=== PATIENT | female | born 1975 | race Caucasian/White ===

== ENCOUNTER 2017-12-28 12:10 | Day surgery (SDC) | payer BC ==
--- NOTE | 2017-12-28 05:51 | History and Physical Report ---
DATE: 12/27/2017. CHIEF COMPLAINT AND HISTORY OF CHIEF COMPLAINT: This patient presents with a history of an intractable lumbar radiculopathy. Due to the failure of all therapies and the lack of surgical options, she presents today for implantation of an internal catheter infusion trial with hydromorphone to determine if the implantation of a permanent system can be of any value in pain control. PAST MEDICAL HISTORY: Hypertension, cardiac arrhythmia, peripheral edema, asthmatic bronchitis, degenerative arthritis, fibromyalgia, depression, difficulty sleeping. PAST SURGICAL HISTORY: Tubal ligation, gallbladder surgery. MEDICATIONS ON ADMISSION: To be provided. ALLERGIES: To be provided. SOCIAL HISTORY: Caffeine, smoking. FAMILY HISTORY: Thyroid disease, asthma, diabetes, hypertension. PHYSICAL EXAMINATION: General: Height and weight unavailable. Vital Signs: Not available. HEENT: Within normal limits. Lungs: Clear. Heart: Regular rate and rhythm. Abdomen: Nontender. Musculoskeletal: Examination of the musculoskeletal system shows diffuse tenderness throughout the lumbar spine. Range of motion does produce pain throughout the low back and hip area. There is a lower extremity component across an L4 and L5 pattern. Motor and sensory field function shows sensory beltran to be intact and motor function to be intact. Ambulation: No assistive device utilized. Neurologic: Cranial nerves are intact. IMPRESSION: INTRACTABLE LUMBAR RADICULOPATHY, ICD-10 CODE M54.16 AND M54.17. PLAN: The patient is here for an implanted spinal catheter infusion trial with hydromorphone to determine if the implantation of a permanent system would be of any value in pain control. The procedure will be considered outpatient, but because of the epidural blood patch requiring the patient to lie flat for four hours and then be slowly raised for one hour, she will be considered a possible overnight candidate. All of the potential risks, side effects, and complications have been reviewed. A book was provided along with a CD Rom from the holistic specialist explaining the procedure and side effects. She also had interaction with a [employer] marketing representative. All of her questions were answered and the patient has consented. JOB NUMBER: [id number] cc: Dorinda Mcgraw
[~2017-12-28 12:10] MED LIST: ACETAMINOPHEN 1,000 MG/100 ML BTL IV ONE; CEFAZOLIN 2 Gram 2 GM/50 ML BAG IVPB ONE; FAMOTIDINE 20MG TABLET PO ONE; HYDROMORPHONE PF 2MG/ML AMP 0.008 MG in 0.9 % SODIUM CHLORIDE 10ML VIA 0.996 ML IV ONE; HYDROMORPHONE PF 2MG/ML AMP 4 MG in 0.9 % SODIUM CHLORIDE 500ML 498 ML IV ONE; HYDROMORPHONE PF 2MG/ML AMP 8 MG in 0.9 % SODIUM CHLORIDE 500ML 496 ML IV ONE; MECLIZINE 25 MG TABLET PO ONE; METOCLOPRAMIDE 10 MG TABLET PO ONE
[2017-12-28] MEDS ORDERED: CEFAZOLIN 1G VIAL IM ONE (12:11)
[2017-12-28] MEDS ORDERED: MIDAZOLAM HCL 2MG/2ML VIAL IV ONE (12:11)
[2017-12-28] MEDS ORDERED: LIDOCAINE 1% MDV (10MG/ML) 20ML VIAL SQ ONE (12:11)
[2017-12-28] MEDS ORDERED: BUPIVACAINE 0.5% W/EPI MPF 30 ML VIAL IVP ONE (12:11)
[2017-12-28] MEDS ORDERED: FENTANYL PF 100MCG/2ML VIAL IV ONE (12:11)
[2017-12-28] MEDS ORDERED: LIDOCAINE 1% W/EPI 1:200,000 MPF 30ML SQ ONE (12:11)
[2017-12-28] MEDS ORDERED: HYDROMORPHONE HCL 2 MG/ML VIAL IV ONE (12:11)
[2017-12-28] MEDS ORDERED: *PACU ONLY* KETAMINE HCL 10 MG/ML (20ML) VIAL IV ONE (12:11)
[2017-12-28] MEDS ORDERED: PROPOFOL 10 MG/ML VIAL IV ONE (12:11)
[2017-12-28] MEDS ORDERED: HYDROCODONE/APAP 7.5/325MG TABLET PO PRN ×2 (16:20)
[2017-12-28] MEDS ORDERED: DIPHENHYDRAMINE HCL 50 MG/ML VIAL IVP PRN ×2 (16:20)
[2017-12-28] MEDS ORDERED: OXYCODONE/APAP 10MG-325MG TABLET PO PRN (16:20)
[2017-12-28] MEDS ORDERED: NALOXONE 0.4 MG/1 ML VIAL IVP PRN (16:20)
[2017-12-28] MEDS ORDERED: RINGERS SOLUTION,LACTATED 1,000 ML IV SCH (16:20)
[2017-12-28] MEDS ORDERED: HYDROMORPHONE HCL 2 MG/ML VIAL IM PRN ×2 (16:20)
[2017-12-28] MEDS ORDERED: DIPHENHYDRAMINE HCL 25 MG CAPSULE PO PRN ×2 (16:20)
[2017-12-28] MEDS ORDERED: ACETAMINOPHEN 325 MG TAB PO PRN ×2 (16:20)
[2017-12-28] MEDS ORDERED: TEMAZEPAM 15 MG CAPSULE PO PRN ×2 (16:20)
[2017-12-28] MEDS ORDERED: METOCLOPRAMIDE 10 MG TABLET PO PRN (16:20)
[2017-12-28] MEDS ORDERED: AL HYDROX/MAG HYDROX 30ML UD PO PRN (16:20)
[2017-12-28] MEDS ORDERED: METOCLOPRAMIDE HCL 10 MG/2 ML VIAL IVP PRN (16:20)
[2017-12-28] MEDS ORDERED: SENNOSIDES/DOCUSATE SODIUM UD CAPSULE PO PRN ×2 (16:20)
[2017-12-28] MEDS ORDERED: ALPRAZOLAM 0.25 MG TABLET PO PRN (16:21)
[2017-12-28] MEDS ORDERED: ALBUTEROL HFA 8 GM INHALER INH PRN (16:23)
[2017-12-28] MEDS: OXYCODONE/APAP 10MG-325MG TABLET PO PRN ×2 (18:12→20:40)
--- NOTE | 2017-12-28 18:56 | Operative Note ---
DATE OF SURGERY: 12/28/17. PREOPERATIVE DIAGNOSES: LUMBAR RADICULOPATHY ICD-10 CODE M54.16 AND M54.17. SURGERY: 1. FLUOROSCOPIC-GUIDED ACCESS SPINAL SPACE AT L3-4, PLACEMENT OF THIN-WALLED SPINAL CATHETER INTO THE SPINAL SPACE AT T12. 2. DIAGNOSTIC MYELOGRAPHY WITH RADIOLOGIC SUPERVISION AND INTERPRETATION. 3. BOLUS OF HYDROMORPHONE INTO THE SPINAL SPACE AT 0.004 MG . 4. INCISION, SUBCUTANEOUS DISSECTION AND ANCHORING OF SPINAL CATHETER TO SUPRASPINOUS FASCIA WITH ANCHORING DEVICE AND NONABSORBABLE SUTURE. 5. INCISION, SUBCUTANEOUS DISSECTION AND CREATION OF SMALL POUCH AT THE LEFT FLANK. 6. TUNNELING MIDLINE SPINAL CATHETER TO FLANK POUCH. INTERFACE SPINAL CATHETER WITH SECOND CATHETER COMPONENT BY WAY OF CONNECTOR. TUNNELING SECOND CATHETER COMPONENTS 4.0 CM SUPERIOR EXITING SKIN. 7. EXTERNAL CATHETER INTERFACED TO EXTERNAL PUMP SET TO DELIVER HYDROMORPHONE AT 0.08 MG PER DAY. 8. EPIDURAL BLOOD PATCH AT L4-5, 20 ML AUTOLOGOUS BLOOD DRAWN WITH STERILE TECHNIQUE LEFT ANTECUBITAL. 9. DRESSINGS PLACED SECURING CATHETER AND ALL CONNECTIONS UNDER STERILE DRESSING. SURGEON: Dane Kohler D.O. ANESTHESIA: Local sedation. ANESTHESIA PROVIDER: Kaitlyn Vázquez CRNA. INDICATIONS: This patient presents with a history of intractable lumbar radiculopathy. Due to the failure of therapy, she is here for an implanted spinal catheter infusion trial with hydromorphone to determine if the implantation of a permanent system can be of any value in pain control. PROCEDURE: Intravenous line, vital sign monitoring, and intravenous sedation. Prepped and draped with sterile technique with the patient positioned prone. The spinal interspace at L3-4 was marked and infiltrated under imaging. A 20- gauge spinal needle with a paramedian approach, beveled with a long axis was inserted into the spinal space using AP and lateral images for guidance. With cerebrospinal fluid flow, a thin-walled spinal catheter was advanced and positioned at T12. Diagnostic myelography was performed. The resulting flow characteristics were appropriate for the space. With these flow characteristics in site and the level confirmed, a bolus of hydromorphone 0.004 mg was given into the spinal space. The skin above and below the needle was infiltrated, an incision was made, and subcutaneous dissection was conducted to the supraspinous fascia. The needle was removed and the catheter was anchored to the supraspinous fascia with an anchoring device and nonabsorbable suture. Cerebrospinal fluid was still noted through the catheter, and the catheter was clamped. At the left flank, with the patient considering either above the belt or an abdominal pump, the skin was infiltrated. An incision was made, and subcutaneous dissection was conducted to form a small subcutaneous pouch. The spinal catheter was tunneled into this pouch, and then the catheter was interfaced with a second catheter component by way of a connector. The second catheter component was tunneled 4.0 cm superior exiting the skin. At that point , the catheter was extended to a pump and then interfaced to an external pump which was set to deliver Hydromorphone at 0.08 mg a day. Both incisions were closed with Vicryl for fascia and a running Nylon for the skin. At L4-5, which is one level below the dural puncture, the skin was infiltrated, and an 18-gauge Tuohy needle with [id number] with the epidural space accessed. Simultaneously, 20 mL of autologous blood was drawn with sterile technique from the left antecubital. This blood was placed onto the field and an epidural blood patch was performed at this level with this blood. The needle was removed. All of the dressings were reinforced, securing the catheter and all connections as well as the incisions under sterile dressing. She was transported to the recovery room flat with a pillow under her head and knees. She had full functionality of her extremities. No abnormal findings with respect to conversation or pain. She will be transferred to the floor and will be kept flat for four hours and then will be slowly elevated for one hour. She will then be evaluated for discharge or an overnight stay. DISCHARGE INSTRUCTIONS: 1. Sites are to remain clean and dry, no showering or bathing in any way that would disrupt dressings. If this happens, contact the clinic. 2. Standard medications are to be resumed including Levaquin, the antibiotic, 500 mg once a day for 14 days. 3. Spinal opioid side-effects including respiratory depression, nausea, vomiting, constipation, urinary retention, lightheadedness, and rash have all been discussed and reviewed. If she has any of these symptoms, she is to contact the clinic. 4. The office will contact the patient and set up three reprogrammings for increases with the first to be done in the next two to three days. 5. All other instructions provided. Numbers to contact if problems given. She will be evaluated. cc: Rosi Bourgeois M.D. JOB NUMBER: [id number] MTDD
[2017-12-28] MEDS ORDERED: TRAMADOL HCL 50 MG TABLET PO PRN ×2 (20:18→20:24)
[2017-12-28] MEDS ORDERED: LISINOPRIL 10 MG TABLET PO SCH (22:00)
[2017-12-28] MEDS ORDERED: METFORMIN 500 MG TABLET PO SCH (22:00)
[2017-12-28] MEDS ORDERED: HYDROCHLOROTHIAZIDE 25 MG TABLET PO SCH (22:00)
[2017-12-28] MEDS ORDERED: CEFAZOLIN 2 Gram 2 GM/50 ML BAG IVPB SCH (22:30)
[2017-12-29] MEDS ORDERED: ARNUITY (FLUTICASONE FUROATE) 100MCG INH INH SCH (10:00)
--- NOTE | 2017-12-31 15:06 | RADIOLOGY REPORT ---
DATE: 12/28/2017. EXAM: LUMBAR SPINE. HISTORY: Postoperative. TECHNIQUE: Portable lumbar spine. COMPARISON: None. FINDINGS: Stimulating wires are partially seen. Overlying stool and bowel gas. IMPRESSION: POSTSURGICAL CHANGE. JOB NUMBER: [id number] MTDD
== END 2017-12-28 21:40 | disposition home or self-care (01) ==
LOC: SUR 12:10 → MEDSURG 16:47 → SUR 21:40
PROVIDERS: ATTEND Pain Medicine Interventional Pain Medicine
DX: M54.16 Radiculopathy, lumbar region (principal); M54.17 Radiculopathy, lumbosacral region; I10 Essential (primary) hypertension; R00.2 Palpitations; I49.9 Cardiac arrhythmia, unspecified; E11.9 Type 2 diabetes mellitus without complications; Z79.84 Long term (current) use of oral hypoglycemic drugs; J45.909 Unspecified asthma, uncomplicated; M79.7 Fibromyalgia
CPT/HCPCS: 36416; 82948; 72020; 62350; 00630; Q9967; J3010; J1170 ×2; J0690; J7040

== ENCOUNTER 2018-01-11 13:55 | Day surgery (SDC) | payer BC ==
--- NOTE | 2018-01-11 07:56 | History and Physical Report ---
DATE: 01/11/2018. CHIEF COMPLAINT AND HISTORY OF CHIEF COMPLAINT: This patient presents with an implanted spinal catheter infusion trial with hydromorphone. She is here for permanent implantation. PAST MEDICAL HISTORY: No interval change. PAST SURGICAL HISTORY: No interval change. MEDICATIONS ON ADMISSION: To be provided. ALLERGIES: Unchanged. SOCIAL HISTORY: No interval change. FAMILY HISTORY: No interval change. REVIEW OF SYSTEMS: The patient is appropriate and in no acute distress. The remainder of the systems review shows no interval changes. PHYSICAL EXAMINATION: General: Height and weight unavailable. Vital Signs: Not available. HEENT: Within normal limits. Lungs: Clear. Heart: Regular rate and rhythm. Abdomen: Nontender. Musculoskeletal: Evaluation of the externalized catheter dressing is intact. There is no drainage or breakdown. The externalized infusion pump is continuing to function appropriately. Neurologic: Cranial nerves are intact. IMPRESSION: 1. INTRACTABLE LUMBAR RADICULOPATHY, ICD-10 CODE M54.16 AND M54.17. 2. IMPLANTED SPINAL CATHETER INFUSION TRIAL WITH HYDROMORPHONE. PLAN: The patient is here for implantation of a permanent system with removal of all of the external components. The potential risks, side effects, and complications have all been reviewed. JOB NUMBER: [id number] cc: Rosi Bourgeois M.D. MTDD
[~2018-01-11 13:55] MED LIST changes: +HYDROMORPHONE HCL 0.04 GM in 0.9 % SODIUM CHLORIDE 10ML VIA 40 ML IV ONE; +HYDROMORPHONE PF 2MG/ML AMP 0.004 MG in 0.9 % SODIUM CHLORIDE 10ML VIA 0.998 ML IV ONE; -HYDROMORPHONE PF 2MG/ML AMP 0.008 MG in 0.9 % SODIUM CHLORIDE 10ML VIA 0.996 ML IV ONE; -HYDROMORPHONE PF 2MG/ML AMP 4 MG in 0.9 % SODIUM CHLORIDE 500ML 498 ML IV ONE; -HYDROMORPHONE PF 2MG/ML AMP 8 MG in 0.9 % SODIUM CHLORIDE 500ML 496 ML IV ONE
[2018-01-11] MEDS ORDERED: MIDAZOLAM HCL 2MG/2ML VIAL IV ONE (13:56)
[2018-01-11] MEDS ORDERED: LIDOCAINE 1% MDV (10MG/ML) 20ML VIAL SQ ONE (13:56)
[2018-01-11] MEDS ORDERED: CEFAZOLIN 1G VIAL IM ONE (13:56)
[2018-01-11] MEDS ORDERED: FENTANYL PF 100MCG/2ML VIAL IV ONE (13:56)
[2018-01-11] MEDS ORDERED: BUPIVACAINE 0.5% W/EPI MPF 30 ML VIAL IVP ONE (13:56)
[2018-01-11] MEDS ORDERED: LIDOCAINE 1% W/EPI 1:200,000 MPF 30ML SQ ONE (13:56)
[2018-01-11] MEDS ORDERED: PROPOFOL 10 MG/ML VIAL IV ONE (13:56)
[2018-01-11] MEDS ORDERED: HYDROMORPHONE HCL 2 MG/ML VIAL IV ONE (13:56)
--- NOTE | 2018-01-11 21:29 | Operative Note - [place] ---
DATE OF SURGERY: 01/11/18. PREOPERATIVE DIAGNOSES: 1. INTRACTABLE LUMBAR RADICULOPATHY, ICD-10 CODE = M54.16 AND M54.17. 2. IMPLANTED SPINAL CATHETER INFUSION TRIAL HYDROMORPHONE. SURGERY: 1. INCISION, SUBCUTANEOUS DISSECTION AND REMOVAL OF INDWELLING SPINAL CATHETER. SURGEON: KARY DUBOIS D.O. ANESTHESIA: LOCAL SEDATION. ANESTHESIA PROVIDER: TOM TRAN CRNA. INDICATIONS: This patient presents with pain, which is low back and leg. An implanted spinal catheter infusion trial of Hydromorphone had resulted in 75+% pain control. As she arrived today into the Pre-Op Area for surgery to permanently implant the system, all the dressing was off and the externalized catheter was fully exposed at the penetration point exiting the skin. Despite the degree of pain control, it was felt that implanting the technique would involve implanting a potentially contaminated catheter. We decided to remove the system. We could reevaluate a permanent implant over the next 2 to 4 weeks. SURGERY: Intravenous line, vital sign monitoring, IV sedation, prepped and draped sterile technique. The midline incision for the implanted spinal catheter was marked, infiltrated. The anchor was identified, the suture removed , the anchor removed, and a purse-string placed around the penetration point. Spinal catheter was retracted, the tip identified and the purse-string suture tightened stopping CSF leak. Antibiotic irrigation and Bovie for hemostasis. At the left posterior gluteal margin interface site between the external and internal catheter, skin infiltrated, incision made and subcutaneous dissection was conducted to the connection between the internal and external catheters, the connector identified, cut, and removed. The external catheter was then removed, pulling away from the incision. Antibiotic irrigation and Bovie for hemostasis. The incisions were then closed with Vicryl for facia and william for skin. Dressings placed. She was transported to the Recovery Room stable. No side-effects from the procedure or the sedation. When awake and alert, she will be discharged to home. DISCHARGE INSTRUCTIONS: 1. Sites are to remain clean and dry, no showering or bathing in any way that would disrupt dressings. If it happens, contact the clinic. 2. Standard medications resumed. She will continue the antibiotic until completion, which is another 7 days. 3. Should she develop a headache, stay flat, plenty of fluids, contact the office. All other instructions provided. Numbers to contact if problems were given. She will be evaluated in the office in 10 to 14 days. cc: Dr. Rosi Bourgeois JOB NUMBER: [id number] MTDD
== END 2018-01-11 17:10 | disposition home or self-care (01) ==
LOC: SUR 13:55
PROVIDERS: ATTEND Pain Medicine Interventional Pain Medicine
DX: M54.16 Radiculopathy, lumbar region (principal); M54.17 Radiculopathy, lumbosacral region; E11.9 Type 2 diabetes mellitus without complications; E78.00 Pure hypercholesterolemia, unspecified; I10 Essential (primary) hypertension
CPT/HCPCS: J0690; J1170

== ENCOUNTER 2018-04-19 13:02 | Day surgery (SDC) | payer BC ==
--- NOTE | 2018-04-19 07:29 | History and Physical - [place] ---
CHIEF COMPLAINT/HISTORY OF CHIEF COMPLAINT: This patient presents with a history of intractable lumbar radiculopathy. The previous implanted spinal catheter infusion trial was successful, but because of loss of integrity of the dressing it was felt appropriate to remove the device. She is here for implantation of a permanent system due to the failure of all other therapies. PAST MEDICAL HISTORY: Hypertension, cardiac arrhythmia, peripheral edema, asthmatic bronchitis, degenerative arthritis, fibromyalgia, depression, difficulty sleeping, and leukocytosis. PAST SURGICAL HISTORY: Tubal ligation and gallbladder surgery. MEDICATIONS ON ADMISSION: List to be provided. ALLERGIES: None. FAMILY/PSYCHOSOCIAL HISTORY: Social history - Caffeine and smoking. Family history - Thyroid disease, asthma, diabetes, and hypertension. SYSTEMS REVIEW: The patient is appropriate in no acute distress. The remainder of the systems review is noncontributory. PHYSICAL EXAMINATION: Height is 5'5", weight is 200 pounds. HEENT: Within normal limits. LUNGS: Clear. HEART: Regular rate and rhythm. ABDOMEN: Nontender. MUSCULOSKELETAL: Examination of the musculoskeletal system shows diffuse tenderness lumbar spine. Range of motion produces pain throughout the low back and extending into both lower extremities. Motor and sensory field evaluation is intact. There is no sensory or motor loss. No assistive device used for ambulation. NEUROLOGIC: Cranial nerves are intact. IMPRESSION: LUMBAR RADICULOPATHY, ICD-10 CODE M54.16 AND M54.17. PLAN: The patient is here for implantation of a spinal opioid infusion device with Hydromorphone. The potential risks, side effects, and complications have all been carefully reviewed and discussed. Information was provided by the sociology research assistant. A clinical specialist has been made contact with and all questions were answered. The procedure will be considered outpatient, although an overnight stay will be evaluated. JOB NUMBER: [id number] [facility]
[~2018-04-19 13:02] MED LIST changes: -HYDROMORPHONE HCL 0.04 GM in 0.9 % SODIUM CHLORIDE 10ML VIA 40 ML IV ONE; +HYDROMORPHONE HCL 0.08 GM in 0.9 % SODIUM CHLORIDE 10ML VIA 40 ML IV ONE; -HYDROMORPHONE PF 2MG/ML AMP 0.004 MG in 0.9 % SODIUM CHLORIDE 10ML VIA 0.998 ML IV ONE; +HYDROMORPHONE PF 2MG/ML AMP 0.008 MG in 0.9 % SODIUM CHLORIDE 10ML VIA 0.996 ML IV ONE
[2018-04-19] MEDS ORDERED: LIDOCAINE 2% MDV (20MG/ML) 20ML VIAL IV ONE (13:03)
[2018-04-19] MEDS ORDERED: FENTANYL PF 100MCG/2ML VIAL IV ONE (13:03)
[2018-04-19] MEDS ORDERED: MIDAZOLAM HCL 2MG/2ML VIAL IV ONE (13:03)
[2018-04-19] MEDS ORDERED: HYDROMORPHONE HCL 2 MG/ML VIAL IV ONE (13:03)
[2018-04-19] MEDS ORDERED: CEFAZOLIN 1G VIAL IM ONE (13:03)
[2018-04-19] MEDS ORDERED: PROPOFOL 10 MG/ML VIAL IV ONE (13:03)
[2018-04-19] MEDS ORDERED: BUPIVACAINE 0.5% W/EPI MPF 30 ML VIAL IVP ONE (13:03)
[2018-04-19] MEDS ORDERED: 0.9 % SODIUM CHLORIDE 10 ML VIAL IVP ONE (13:03)
[2018-04-19] MEDS ORDERED: LIDOCAINE 1% W/EPI 1:200,000 MPF 30ML SQ ONE (13:03)
[2018-04-19] MEDS ORDERED: HYDROMORPHONE HCL 2 MG/ML VIAL IM PRN ×2 (16:40)
[2018-04-19] MEDS ORDERED: OXYCODONE/APAP 10MG-325MG TABLET PO PRN (16:40)
[2018-04-19] MEDS ORDERED: DIPHENHYDRAMINE HCL 50 MG/ML VIAL IVP PRN ×2 (16:40)
[2018-04-19] MEDS ORDERED: METOCLOPRAMIDE HCL 10 MG/2 ML VIAL IVP PRN (16:40)
[2018-04-19] MEDS ORDERED: TEMAZEPAM 15 MG CAPSULE PO PRN ×2 (16:40)
[2018-04-19] MEDS ORDERED: AL HYDROX/MAG HYDROX 30ML UD PO PRN (16:40)
[2018-04-19] MEDS ORDERED: DIPHENHYDRAMINE HCL 25 MG CAPSULE PO PRN ×2 (16:40)
[2018-04-19] MEDS ORDERED: ACETAMINOPHEN 325 MG TAB PO PRN ×2 (16:40)
[2018-04-19] MEDS ORDERED: HYDROCODONE/APAP 7.5/325MG TABLET PO PRN ×2 (16:40)
[2018-04-19] MEDS ORDERED: RINGERS SOLUTION,LACTATED 1,000 ML IV SCH (16:40)
[2018-04-19] MEDS ORDERED: SENNOSIDES/DOCUSATE SODIUM UD CAPSULE PO PRN ×2 (16:40)
[2018-04-19] MEDS ORDERED: METOCLOPRAMIDE 10 MG TABLET PO PRN (16:40)
[2018-04-19] MEDS ORDERED: ALBUTEROL HFA 8 GM INHALER INH PRN (16:43)
[2018-04-19] MEDS ORDERED: ALPRAZOLAM 0.25 MG TABLET PO PRN (16:43)
[2018-04-19] MEDS: OXYCODONE/APAP 10MG-325MG TABLET PO PRN ×2 (17:54→20:01)
[2018-04-19] MEDS ORDERED: LISINOPRIL 20 MG TABLET PO SCH (22:00)
[2018-04-19] MEDS ORDERED: HYDROCHLOROTHIAZIDE 25 MG TABLET PO SCH (22:00)
[2018-04-19] MEDS ORDERED: METFORMIN 500 MG TABLET PO SCH (22:00)
[2018-04-19] MEDS ORDERED: ATORVASTATIN 20 MG TABLET PO SCH (22:00)
[2018-04-19] MEDS ORDERED: CEFAZOLIN 2 Gram 2 GM/50 ML BAG IVPB SCH (22:30)
--- NOTE | 2018-04-21 10:09 | RADIOLOGY REPORT ---
EXAM: AP THORACOLUMBAR SPINE HISTORY: POST PAIN PUMP IMPLANT. TECHNIQUE: A single AP view of the spine was obtained extending from the upper thoracic region down to the lower lumbar region. Comparison: AP thoracolumbar spine 12/28/17. FINDINGS: There is a battery pack now seen overlying the left lower quadrant of the abdomen not seen previously. Faint wire like density extends from this to overlie the mid lumbar spine and ascends up to what is probably the T12 level where there is a tiny metallic dot presumably representing the superior extent of the pain pump catheter. Some blurring artifact on the film, but there again appears to be surgical clips in the right upper quadrant of the abdomen presumably from cholecystectomy. Relative elevation of the right hemidiaphragm again noted. IMPRESSION: THE TIP OF THE PAIN PUMP CATHETER APPEARS TO OVERLIE THE T12 VERTEBRAL BODY. JOB NUMBER: [id number] MTDD
--- NOTE | 2018-04-21 16:34 | Operative Note ---
DATE: 04/19/2018. PREOPERATIVE DIAGNOSES: INTRACTABLE LUMBAR RADICULOPATHY, ICD-10 CODE M54.16 AND M54.17. PROCEDURES: 1. Fluoroscopically guided spinal access at L3-4. Placement of a thin-walled spinal catheter at T11-12. 2. Diagnostic myelography with radiologic supervision and interpretation. 3. Incision, subcutaneous dissection, and anchoring of spinal catheter to the supraspinous fascia using anchor device and nonabsorbable suture. removal of external catheter. 4. Incision, subcutaneous dissection, and creation of subcutaneous pouch at the left flank for placement of pump identified as Medtronic 20 mL programmable pump. 5. Tunneling between pouches. Placement of the external portion of the spinal catheter into pump pouch. Spinal catheter interfaced with secondary catheter component by way of connector. 6. Interface secondary catheter component to 20 mL programmable pump prefilled with hydromorphone 1.0 mg per mL. 7. With pump catheter connection made, pump placed into left flank pouch and secured to posterior fascia with nonabsorbable suture. 8. Placement of curved 24-gauge Goetz needle into access port for the programmable pump aspirating and clearing catheter of opioid and cerebrospinal fluid mixture. 9. Diagnostic myelography with radiologic supervision and interpretation using access port confirming functionality. 10. Programming of pump to deliver by continuous infusion hydromorphone 0.10 mg a day. 11. Closure of incisions using Stratafix suture, #2-0 for the fascia and #3-0 for the skin. Dermabond closure. 12. Epidural blood patch at L4-5 with 20 mL of autologous blood with sterile technique, left antecubital. SURGEON: Dane Kohler D.O. ANESTHESIA: Local sedation. ANESTHESIA PROVIDER: Lenin Whiting CRNA. INDICATIONS: This patient presents with a history of intractable lumbar radiculopathy. Due to the failure of all therapy and the success of the previous trials, she presented today for implantation of a permanent system. DESCRIPTION OF PROCEDURE: Intravenous lines, vital sign monitoring, and intravenous. Prepped and draped with sterile technique. Under imaging the spinal interspace at L3-4 was marked and infiltrated. A 20-gauge spinal needle , using AP and lateral imaging, was placed into the spinal space. With cerebrospinal fluid, a thin-walled spinal catheter was advanced into position at T11-12. Diagnostic myelography was performed. The resulting flow characteristics were smooth and linear in the space. No obstruction or redirection and the catheter was straight and linear. Appropriate flow characteristics were noted. No pain on the part of the patient. The catheter was clamped. The skin above and below the needle was infiltrated. An incision was made, and subcutaneous dissection was conducted through the supraspinous fascia. The needle was removed and the catheter was anchored to the supraspinous fascia with an anchor and nonabsorbable suture. Cerebrospinal fluid flow was still noted through the catheter. At the left flank, a site picked by the patient for the pouch, the skin was infiltrated. An incision was made and subcutaneous dissection was conducted to form a pouch of suitable size and depth for the pump itself identified as a Medtronic 20 mL programmable pump. The catheter was then tunneled into the flank pouch, and the catheter was interfaced with a second catheter component by way of connector. A 20 mL programmable pump prefilled with hydromorphone at 1.0 mg per mL was placed onto the field and then interfaced with the revised catheter. Antibiotic irrigation and Bovie for hemostasis. The pump was placed into the pouch and secured to the posterior fascia with nonabsorbable suture at three points with pump eyelets. The incisions were both closed using Stratafix suture with #2-0 for the fascia and #3-0 for the skin. Dermabond closure. At L4-5, which was one level below the dural puncture, the skin was infiltrated. An 18-gauge Tuohy needle with loss of resistance was placed into the epidural space. Simultaneously 20 mL of autologous blood was drawn with sterile technique, left antecubital. The epidural blood patch was then performed with this blood at this level maintaining sterility. Dressings were placed. Dermabond was placed over the incisions. The patient was turned supine, flat, with a pillow under her head and knees. She was transported to the recovery room stable with no side effects. She had full functionality of the extremities. The patient will be monitored. She will be flat for four hours and will then be slowly elevated for one hour. If requested, she may then be discharged. Otherwise she will be discharged in the morning. DISCHARGE INSTRUCTIONS: 1. The sites are to remain clean and dry. No showering or bathing in any way that would disrupt dressings. If this happens, contact the clinic. 2. Standard medications to be resumed including continuing the Levaquin the antibiotic 500 mg once a day for 14 days. 3. The office is to contact the patient at home to set up the evaluation in seven to ten days to check the site. Until then her activities should stay low. 4. Spinal opioid side effects including respiratory depression, nausea, vomiting, constipation, urinary retention, lightheadedness, and rash have all been discussed and reviewed. 5. She will be seen back in the office. JOB NUMBER: [id number] cc: Rosi Bourgeois M.D. MTDPablo
== END 2018-04-19 22:10 | disposition home or self-care (01) ==
LOC: SUR 13:02 → MEDSURG 16:30 → SUR 22:10
PROVIDERS: ATTEND Pain Medicine Interventional Pain Medicine
DX: M54.16 Radiculopathy, lumbar region (principal); M54.17 Radiculopathy, lumbosacral region; E11.9 Type 2 diabetes mellitus without complications; I10 Essential (primary) hypertension; E78.00 Pure hypercholesterolemia, unspecified; J45.909 Unspecified asthma, uncomplicated; F17.210 Nicotine dependence, cigarettes, uncomplicated
CPT/HCPCS: 62362; 01936; 62350; 62367; 85002; 72020; Q9967; J3010; J1170 ×2; J0690

== ENCOUNTER 2018-08-22 22:06 | Emergency (ER) | payer BC ==
--- NOTE | 2018-08-22 22:39 | Emergency Department Record ---
History of Present Illness - General Chief complaint: Extremity Problem Stated complaint: RT FOOT SWELLING Time Seen by Provider: 08/22/18 22:30 Source: Patient Mode of Arrival: Ambulatory Limitations: No limitations - History of Present Illness Initial comments: 43 yo female presents to ED for evaluation of swelling to the right foot and pain to the right popliteal region for the past 2 weeks. Patient reports recent flight for vacation that she returned from 2 weeks ago when the symptoms began, patient denies history of DVT/PE. Patient does report history of NIDDM and HTN at her baseline. MD Complaint: Extremity swelling Onset/Timin -: Days(s) Location: Right History of Same: No Radiation: None Consistency: Constant Improves with: Elevation Worsens with: Nothing Associated Symptoms: Denies other symptoms - Related Data Home Medications Medication Instructions Recorded Confirmed Last Taken Albuterol Sulfate [Albuterol 2 puff INH RESP.Q4H 08/22/18 08/22/18 Unknown Sulfate Hfa] Alprazolam 0.25 mg PO Q8H PRN 08/22/18 08/22/18 08/22/18 Beclomethasone Dipropionate [Qvar 1 puff INH DAILY 08/22/18 08/22/18 Unknown Redihaler] Fenofibrate Nanocrystallized 145 mg PO DAILY 08/22/18 08/22/18 Unknown [Fenofibrate] Hydrochlorothiazide [Hctz] 50 mg PO DAILY 08/22/18 08/22/18 Unknown Hydrocodone/Acetaminophen 1 tab PO Q8H PRN 08/22/18 08/22/18 Unknown [Hydrocodone/Acetaminophen 10mg/325mg] Lisinopril 20 mg PO DAILY 08/22/18 08/22/18 Unknown Metformin HCl 1,000 mg PO DAILY 08/22/18 08/22/18 08/22/18 Allergies Allergy/AdvReac Type Severity Reaction Status Date / Time ciprofloxacin [From Cipro] AdvReac Severe tendon Verified 03/29/18 12:17 rupture levofloxacin [From Levaquin] AdvReac Severe tendon Verified 03/29/18 12:17 rupture Travel Screening - Travel/Exposure Within Last 30 Days Have you traveled within the last 30 days?: Yes Location Detail:: [place] - Travel/Exposure Within Last Year Have you traveled outside the [place] in the last year?: No - Travel Symptoms Symptom Screening: None Review of Systems Constitutional: Denies: Chills, Fever, Malaise, Night sweats Eyes: Denies: Eye discharge, Eye pain ENT: Denies: Congestion, Ear pain, Epistaxis Respiratory: Denies: Cough, Dyspnea Cardiovascular: Reports: Edema. Denies: Chest pain, Dyspnea on exertion Endocrine: Denies: Fatigue, Heat or cold intolerance Gastrointestinal: Denies: Abdominal pain, Nausea, Vomiting Genitourinary: Denies: Incontinence, Retention Musculoskeletal: Denies: Arthralgia, Back pain Skin: Denies: Bruising, Change in color Neurological: Denies: Abnormal gait, Confusion, Headache, Seizure Psychiatric: Denies: Anxiety Hematological/Lymphatic: Denies: Anemia, Blood Clots Past Medical History - SOCIAL HISTORY Smoking Status: Current every day smoker Alcohol Use: None Drug Use: None - RESPIRATORY Hx Respiratory Disorders: Yes Hx Asthma: Yes (good control) - CARDIOVASCULAR Hx Cardio Disorders: Yes Hx Hypertension: Yes (on meds good control) Hx Irregular Heartbeat: Yes (occass skipped beats) Hx Palpitations: Yes Comment:: due to back issues - NEURO Hx Neuro Disorders: Yes Hx Dizziness: Yes (once in a while) Hx Headaches: Yes (occassionally) 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) - GI Hx GI Disorders: Yes Hx Abdominal Pain: Yes Hx Nausea/Vomiting: Yes (with meds nausea from Percocet) Hx of Polyps: Yes - Hx Genitourinary Disorders: No Comment:: TL 1997.pt had ablation uterine 2009 periods very light - ENDOCRINE Hx Endocrine Disorders: Yes Hx Diabetes: Yes (dx'd 1 yr ago) 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 FBS 's - MUSCULOSKELETAL Hx Musculoskeletal Disorders: Yes Hx Arthritis: Yes Hx Back Injury: Yes (2 yrs ago) Hx Fibromyalgia: Yes - PSYCH Hx Psych Problems: Yes Hx Anxiety: Yes Hx Depression: Yes - HEMATOLOGY/ONCOLOGY Hx Hematology/Oncology Disorders: No Family Medical History Any Significant Family History?: Yes Hx Diabetes: Grandparents Hx HTN: Father, Mother, Brother/Sister Physical Exam - General General Appearance: Alert, Oriented x3, Cooperative, No acute distress Limitations: No limitations - Head Head exam: Atraumatic, Normocephalic, Normal inspection Head exam detail: negative: Abrasion, Contusion, Renteria's sign, General tenderness, Hematoma, Laceration - Eye Eye exam: Normal appearance. negative: Conjunctival injection, Periorbital swelling, Periorbital tenderness, Scleral icterus - ENT Ear exam: negative: Auricular hematoma, Auricular trauma Nasal Exam: negative: Active bleeding, Discharge, Dried blood, Foreign body Mouth exam: negative: Drooling, Laceration, Muffled voice, Tongue elevation - Neck Neck exam: Normal inspection. negative: Meningismus, Tenderness - Respiratory Respiratory exam: Normal lung sounds bilaterally. negative: Rales, Respiratory distress, Rhonchi, Stridor - Cardiovascular Cardiovascular Exam: Regular rate, Normal rhythm, Normal heart sounds Peripheral Pulses: 3+: Dorsalis Pedis (R) - GI/Abdominal GI/Abdominal exam: Soft. negative: Rebound, Rigid, Tenderness - Rectal Rectal exam: Deferred - exam: Deferred - Extremities Extremities exam: Tenderness (TTP to the popliteal region, trace edema right foot, strong DPP present.). negative: Calf tenderness, Pedal edema - Back Back exam: Denies: CVA tenderness (R), CVA tenderness (L) - Neurological Neurological exam: Alert, Normal gait, Oriented X3 - Psychiatric Psychiatric exam: Normal affect, Normal mood - Skin Skin exam: Normal color. negative: Abrasion Type of lesion: negative: abrasion Course Vital Signs 08/22/18 22:15 Temperature 98.2 F Pulse Rate [ 69 Pulse Ox Probe] Respiratory 20 Rate Blood Pressure 138/70 [Left Arm] Pulse Ox 97 - Reevaluation(s) Reevaluation #1: 08/22/18 23:13 Laboratory studies were reviewed, D-Dimer negative. Patient was updated on all results, recommended elevation for her foot swelling , NSAIDs for her pain symptoms. Patient has strong DPP with cap refill 2 seconds, no evidence for arterial deficiency of the lower extremity on examination. Patient appears stable for discharge at this time. Medical Decision Making - Lab Data Result diagrams: 08/22/18 22:41 08/22/18 22:41 Disposition Disposition: Discharge Clinical Impression: Pedal edema Disposition: Home, Self-Care Condition: (2) Stable Instructions: Edema (ED) Additional Instructions: Return to ED if your symptoms worsen or if you have any concerns. Follow-up with your family doctor in 3-5 days as directed. Forms: Patient Portal Access Time of Disposition: 23:15 Quality - Quality Measures Quality Measures: N/A - Blood Pressure Screening Does Patient Have Any of the Following: No Blood Pressure Classification: Pre-Hypertensive BP Reading Systolic Measurement: 138 Diastolic Measurement: 70 Screening for High Blood Pressure: < Pre-Hypertensive BP, F/U Documented > [ G8950] Pre-Hypertensive Follow-up Interventions: Referral to alternative/primary care provider.
[2018-08-22 22:48] LABS: HEMATOCRIT 40.1 % (35.0-47.0); HEMOGLOBIN 12.9 gm/dl (11.6-16.0); MEAN CELL VOLUME 82.3 fl (81-97); MEAN CORPUSCULAR HEMOGLOBIN 26.5 pg (27-33); MEAN CORPUSCULAR HGB CONC 32.2 g/dl (32-36); MEAN PLATELET VOLUME 9.3 fl (7.4-10.4); PLATELET COUNT 327 K/uL (130-400); RED BLOOD COUNT 4.87 M/uL (3.80-5.40); RED CELL DISTRIBUTION WIDTH 14.1 % (11.5-14.5); WHITE BLOOD COUNT W/O DIFF 6.7 K/uL (4.2-12.2)
[2018-08-22 23:00] LABS: BLOOD UREA NITROGEN 7 mg/dL (6-20)
[2018-08-22 23:01] LABS: CREATININE 0.6 mg/dL (0.5-0.9); EST GLOMERULAR FILTRATION RATE > 60 mL/min
[2018-08-22 23:03] LABS: GLUCOSE,RANDOM 91 mg/dL (74-109)
== END 2018-08-22 23:21 | disposition home or self-care (01) ==
LOC: ER 22:06
DX: R60.0 Localized edema (principal); I10 Essential (primary) hypertension; F17.210 Nicotine dependence, cigarettes, uncomplicated
CPT/HCPCS: 80048; 85027; 85379; 99283

== ENCOUNTER 2018-09-05 12:31 | Emergency (ER) | payer BC, MEDICARE, MEDICAID ==
[2018-09-05] MEDS ORDERED: ACETAMINOPHEN 325 MG TAB PO ONE (12:51)
--- NOTE | 2018-09-05 12:56 | Emergency Department Record ---
History of Present Illness - General Chief complaint: Flu Like Symptoms Stated complaint: BODY ACHE,HEADACHE,SORE THROAT Time Seen by Provider: 09/05/18 12:41 Source: Patient Mode of Arrival: Ambulatory Limitations: No limitations - History of Present Illness Initial comments: The patient states she is here due to not feeling well for 2 weeks. She states she was at [facility] 2 weeks ago after having a cardiac arrest and having chest pain. She states she received NTG and ASA and felt better but then took her IV out due to not being seen for 5 hours by a doctor. The patient also states she tested positive for Influenza on that visit. Since she has had intermittent fevers with GUERRA's and body aches with a cough. Per the patient she was also exposed to Strep. MD Complaint: Generalized weakness, Lack of energy Onset/Timin -: Week(s) Location: Generalized Improves with: None Worsens with: None Associated Symptoms: Fever/chills, Headaches, Nausea/vomiting - [place] Coma Scale Eye Response: (4) Open spontaneously Motor Response: (6) Obeys commands Verbal Response: (5) Oriented [place] Total: 15 - Related Data Previous Rx's Medication Instructions Recorded Amoxicillin 500 mg PO TID #21 capsule 09/05/18 Allergies Allergy/AdvReac Type Severity Reaction Status Date / Time ciprofloxacin [From Cipro] AdvReac Severe tendon Verified 09/05/18 12:39 rupture levofloxacin [From Levaquin] AdvReac Severe tendon Verified 09/05/18 12:39 rupture Travel Screening - Travel/Exposure Within Last 30 Days Have you traveled within the last 30 days?: No Location Detail:: [facility] - Travel Symptoms Symptom Screening: Fever (Subjective), Headache, Weakness, Fatigue Review of Systems Constitutional: Reports: Malaise. Denies: Chills, Fever Eyes: Denies: Eye discharge ENT: Reports: Congestion Respiratory: Reports: Cough. 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) - GI Hx GI Disorders: Yes Hx Abdominal Pain: Yes Hx Nausea/Vomiting: Yes Hx of Polyps: Yes - Hx Genitourinary Disorders: No Comment:: TL 1997.pt had ablation uterine 2009 periods very light - ENDOCRINE Hx Endocrine Disorders: Yes Hx Diabetes: Yes 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 FBS 90's - MUSCULOSKELETAL Hx Musculoskeletal Disorders: Yes Hx Arthritis: Yes Hx Back Injury: Yes (2 yrs ago) Hx Fibromyalgia: Yes - PSYCH Hx Psych Problems: Yes Hx Anxiety: Yes Hx Depression: Yes - HEMATOLOGY/ONCOLOGY Hx Hematology/Oncology Disorders: No Family Medical History Any Significant Family History?: Yes Hx Diabetes: Grandparents Hx HTN: Father, Mother, Brother/Sister Physical Exam - General General Appearance: Alert, Oriented x3, Cooperative, No acute distress - Head Head exam: Atraumatic, Normocephalic, Normal inspection - Eye Eye exam: Normal appearance, PERRL - ENT ENT exam: Normal exam, TM's normal bilaterally Nasal Exam: negative: Discharge Throat exam: Normal inspection. negative: Tonsillar erythema, Tonsillomegaly - Neck Neck exam: Normal inspection, Full ROM. negative: Tenderness - Respiratory Respiratory exam: Normal lung sounds bilaterally. negative: Rales, Respiratory distress, Rhonchi, Stridor, Wheezes - Cardiovascular Cardiovascular Exam: Regular rate, Normal rhythm, Normal heart sounds - GI/Abdominal GI/Abdominal exam: Soft, Normal bowel sounds. negative: Tenderness - Extremities Extremities exam: Normal inspection, Full ROM, Normal capillary refill. negative: Tenderness - Back Back exam: Reports: Normal inspection - Neurological Neurological exam: Alert, Normal gait. negative: Abnormal gait, Motor sensory deficit - Psychiatric Psychiatric exam: negative: Anxious - Skin Skin exam: negative: Rash Course Vital Signs 09/05/18 12:36 Temperature 99.1 F Pulse Rate 88 Respiratory 20 Rate Blood Pressure 142/80 Pulse Ox 93 L - Reevaluation(s) Reevaluation #1: The patient now states she must leave due to her ride leaving. She ONLY is interested in getting an Amox. script for her presumed infection. I explained to her that her workup so far is WNL's except for a mildly low RA biox and slightly elevated CK-MB. The risks of leaving AMA are that the patient could have a blood clot, unstable angina, could go home and have an SD, stroke, become disabled and even . The patient understands and accepts the risks and understands we cannot be held liable for NOT doing the tests and working up her issues further. She presently has proper decision making capacity and is instructed to return to the ER for any worsening symptoms. 09/05/18 14:11 Medical Decision Making - Data Complexity MDM Data: Labs Ordered and/or Reviewed, X-Ray Ordered and/or Reviewed, EKG Ordered and/or Reviewed - Lab Data Result diagrams: 09/05/18 13:03 09/05/18 13:03 - EKG Data -: EKG Interpreted by Me EKG: No Acute Changes, Unchanged From Previous (No change from old.) - Radiology Data Radiology results: Report reviewed (CXR: Neg. ) Disposition Disposition: Discharge Clinical Impression: Cough Disposition: Against Medical Advice Condition: (2) Stable Instructions: Acute Bronchitis (ED) Additional Instructions: Please take the AMox as directed and see your family doctor tomorrow. Please return to the ER for any worsening symptoms. Prescriptions: Amoxicillin 500 mg PO TID #21 capsule Forms: Patient Portal Access Time of Disposition: 14:09 Quality - Quality Measures Quality Measures: N/A - Blood Pressure Screening View Details: Yes Does Patient Have Any of the Following: No Blood Pressure Classification: Pre-Hypertensive BP Reading Systolic Measurement: 142 Diastolic Measurement: 80 Screening for High Blood Pressure: < Pre-Hypertensive BP, F/U Documented > [ G8950] Pre-Hypertensive Follow-up Interventions: Referral to alternative/primary care provider.
[2018-09-05 13:08] LABS: HEMATOCRIT 42.6 % (35.0-47.0); HEMOGLOBIN 14.1 gm/dl (11.6-16.0); MEAN CELL VOLUME 80.4 fl (81-97); MEAN CORPUSCULAR HEMOGLOBIN 26.6 pg (27-33); MEAN CORPUSCULAR HGB CONC 33.1 g/dl (32-36); MEAN PLATELET VOLUME 9.3 fl (7.4-10.4); PLATELET COUNT 322 K/uL (130-400); RED CELL DISTRIBUTION WIDTH 14.3 % (11.5-14.5); WHITE BLOOD COUNT W/O DIFF 16.1 K/uL (4.2-12.2)
[2018-09-05 13:21] LABS: BLOOD UREA NITROGEN 10 mg/dL (6-20); CREATININE 0.5 mg/dL (0.5-0.9); EST GLOMERULAR FILTRATION RATE > 60 mL/min
[2018-09-05 13:22] LABS: TOTAL PROTEIN 7.2 g/dL (6.6-8.7)
[2018-09-05 13:24] LABS: GLUCOSE,RANDOM 150 mg/dL (74-109)
[2018-09-05 13:27] LABS: ALB/GLOB RATIO 1.6 (1.1-1.8); ALBUMIN 4.4 g/dL (4.0-5.0); ALKALINE PHOSPHATASE 69 U/L (35-104); ALT/SGPT 22 U/L (<33); AST/SGOT 17 U/L (10.0-35.0); CREATINE PHOSPHOKINASE 191 U/L (26-192)
[2018-09-05 13:30] LABS: CKMB 5.1 ng/mL (<3.77)
[2018-09-05 13:48] LABS: C-REACTIVE PROTEIN 1.86 mg/dL (<0.5)
--- NOTE | 2018-09-07 08:26 | RADIOLOGY REPORT ---
EXAM: CHEST HISTORY: CONGESTION, PRODUCTIVE COUGH AND BODY ACHES, TECHNIQUE: Two views of the chest were obtained. Comparison: None. FINDINGS: The heart is not enlarged. No mediastinal mass. No acute infiltrate or vascular congestion identified. IMPRESSION: NO ACUTE CARDIAC OR PULMONARY ABNORMALITY. JOB NUMBER: [id number] MTDD
== END 2018-09-05 14:10 | disposition left against medical advice (07) ==
LOC: ER 12:31
DX: J20.9 Acute bronchitis, unspecified (principal); R53.1 Weakness; R94.4 Abnormal results of kidney function studies; R11.2 Nausea with vomiting, unspecified; R79.82 Elevated C-reactive protein (CRP); I10 Essential (primary) hypertension; I25.2 Old myocardial infarction; F17.210 Nicotine dependence, cigarettes, uncomplicated; Z86.74 Personal history of sudden cardiac arrest
CPT/HCPCS: 71046; 80053; 82550; 82553; 84145; 84484; 85027; 86140; 87880; 93005; 93010; 99284

== ENCOUNTER 2018-09-09 05:01 | Emergency (ER) | payer BC, MEDICARE, MEDICAID ==
[2018-09-09] MEDS ORDERED: IBUPROFEN 600 MG TABLET PO ONE (05:31)
[2018-09-09 05:38] LABS: BASO % 0.6 % (0-6); EOS % 3.6 % (0-6); HEMOGLOBIN 12.7 gm/dl (11.6-16.0); LYMPH % 27.1 % (16-45); MEAN CELL VOLUME 81.1 fl (81-97); MEAN CORPUSCULAR HEMOGLOBIN 25.8 pg (27-33); MEAN CORPUSCULAR HGB CONC 31.8 g/dl (32-36); MEAN PLATELET VOLUME 9.5 fl (7.4-10.4); MONO % 8.7 % (0-9); PLATELET COUNT 331 K/uL (130-400); RED BLOOD COUNT 4.93 M/uL (3.80-5.40); RED CELL DISTRIBUTION WIDTH 14.1 % (11.5-14.5); WHITE BLOOD COUNT W/O DIFF 10.4 K/uL (4.2-12.2)
--- NOTE | 2018-09-09 05:38 | Emergency Department Record ---
History of Present Illness - General Chief Complaint: Chest Pain Stated Complaint: CHEST PAIN Time Seen by Provider: 09/09/18 05:15 Source: Patient Mode of Arrival: Ambulatory Limitations: No limitations - History of Present Illness Initial Comments: The patient is here due to a 4 hour hx of L chest pain. She describes the pain as a sharp aching L upper chest pain with intermittent radiation to her L shoulder. She denies any SOB, sweating or nausea with it but the pain does seem to be worse with coughing, bending and deep breaths. The patient has had a URI recently and has been coughing a lot. She was recently here in the ER for similar issues and left prior to a complete evaluation. The patient also was at [facility] about 3 weeks ago for similar issues and did also leave prior to a complete evaluation. She denies any chest pain with exertion or BEAULIEU. Her URI symptoms are now much better due to taking Amoxicillin. She does have cardiac risk factors of tobacco use, HTN and Type 2 diabetes. MD Complaint: Chest pain Onset/Timin -: Hour(s) Onset: During rest Pain Location: Left chest Pain Radiation: LUE, Jaw/teeth Severity: Moderate Severity scale (1-10): 5 Quality: Aching Consistency: Constant Improves With: Nothing Worsens With: Nothing Context: Recent illness Anginal Symptoms: Other Other Symptoms: Cough Treatments Prior to Arrival: Other Treatment Prior to Arrival Comment:: nebulizer - Related Data Previous Rx's Medication Instructions Recorded Amoxicillin 500 mg PO TID #21 capsule 09/05/18 Allergies Allergy/AdvReac Type Severity Reaction Status Date / Time ciprofloxacin [From Cipro] AdvReac Severe tendon Verified 09/05/18 12:39 rupture levofloxacin [From Levaquin] AdvReac Severe tendon Verified 09/05/18 12:39 rupture Travel Screening - Travel/Exposure Within Last 30 Days Have you traveled within the last 30 days?: No - Travel Symptoms Symptom Screening: None Review of Systems Constitutional: Reports: Malaise. Denies: Chills, Fever Eyes: Denies: Eye discharge ENT: Reports: Congestion Respiratory: Reports: Cough. Denies: Dyspnea Cardiovascular: Reports: Chest pain. Denies: Arrhythmia Endocrine: Denies: Fatigue Gastrointestinal: Denies: Vomiting Genitourinary: Denies: Dysuria Musculoskeletal: Denies: Arthralgia Skin: Denies: Bruising Past Medical History - SOCIAL HISTORY Smoking Status: Current every day smoker Alcohol Use: None Drug Use: None - RESPIRATORY Hx Respiratory Disorders: Yes Hx Asthma: Yes (good control) - CARDIOVASCULAR Hx Cardio Disorders: Yes Hx Hypertension: Yes (on meds good control) Hx Irregular Heartbeat: Yes (occass skipped beats) Hx Palpitations: Yes Comment:: due to back issues - NEURO Hx Neuro Disorders: Yes Hx Dizziness: Yes (once in a while) Hx Headaches: Yes (occassionally) 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) - GI Hx GI Disorders: Yes Hx Nausea/Vomiting: Yes (with meds nausea from Percocet) - Hx Genitourinary Disorders: No Comment:: TL 1997.pt had ablation uterine 2009 periods very light - ENDOCRINE Hx Endocrine Disorders: Yes Hx Diabetes: Yes (dx'd 1 yr ago) - MUSCULOSKELETAL Hx Musculoskeletal Disorders: Yes Hx Arthritis: Yes Hx Back Injury: Yes (2 yrs ago) Hx Fibromyalgia: Yes - PSYCH Hx Psych Problems: Yes Hx Anxiety: Yes Hx Depression: Yes - HEMATOLOGY/ONCOLOGY Hx Hematology/Oncology Disorders: No Family Medical History Any Significant Family History?: Yes Hx Diabetes: Grandparents Hx HTN: Father, Mother, Brother/Sister Physical Exam - General General Appearance: Alert, Oriented x3, Cooperative, No acute distress - Head Head exam: Atraumatic, Normocephalic, Normal inspection - Eye Eye exam: Normal appearance, PERRL, EOMI - ENT Throat exam: Normal inspection. negative: Tonsillar erythema, Tonsillar exudate - Neck Neck exam: Normal inspection, Full ROM. negative: Tenderness - Respiratory Respiratory exam: Normal lung sounds bilaterally, Chest wall tenderness (There is L upper chest wall tenderness that does reproduce the patient's pain exactly. The pain is also reproduced with chest twisting, bending and coughing.) . negative: Respiratory distress - Cardiovascular Cardiovascular Exam: Regular rate, Normal rhythm, Normal heart sounds - GI/Abdominal GI/Abdominal exam: Soft, Normal bowel sounds. negative: Tenderness - Extremities Extremities exam: Normal inspection, Full ROM, Normal capillary refill. negative: Tenderness Image of Full Body: 1 - Area of pain and reproducible chest tenderness. - Neurological Neurological exam: Alert, Normal gait. negative: Abnormal gait, Motor sensory deficit - Psychiatric Psychiatric exam: negative: Anxious Course Vital Signs 09/09/18 05:06 Temperature 98.8 F Pulse Rate [ 75 Pulse Ox Probe] Respiratory 18 Rate Blood Pressure 145/77 [Left Arm] Pulse Ox 100 - Reevaluation(s) Reevaluation #1: I did offer the patient Motrin, Ofirmiv or Toradol for her musculoskeletal chest pain but the patient declined. She states the pain is not very bad and she has much stronger pain medicines in her bag. 09/09/18 06:07 Reevaluation #2: The patient is doing well at this time. She is resting comfortably with only very mild discomfort when she twists, bends or coughs. She is unable to ly on her L side due to the pain. The patient states the pain is still VERY reproducible to palpation. I did explain to her that her lab tests are all WNL' s. Her Ck-MB is very slightly elevated but it is improved from 4 days ago so that must just be normal for her. The patient is encouraged to see her PCP for recheck next week and possibly to refer her to a christ[facility] bell ringer for further testing due to having 3 visits to the ER in 3 weeks for CP. 09/09/18 06:23 Reevaluation #3: Due to the recurrent nature of the patient's complaints and the fact she has had 3 visits to the ER in 3 weeks I did recommend hospital admission for a chest pain evaluation. I explained to the patient that the tests are all basically normal along with her EKG and the pain does seem to be due to her coughing and chest wall straining. Due to her risk factors I did recommend admission and transfer to a larger hospital due to the fact we have no cardiac testing here over the weekend. The patient is declining that plan and would like to go home. She understands the risks of NOT being admitted and accepts the risks. She is to return to the ER for any worsening symptoms or if she changes her mind about being evaluated further. 09/09/18 06:29 Medical Decision Making - Data Complexity MDM Data: Labs Ordered and/or Reviewed, X-Ray Ordered and/or Reviewed, EKG Ordered and/or Reviewed - Lab Data Result diagrams: 09/09/18 05:18 09/09/18 05:18 - EKG Data -: EKG Interpreted by Me EKG: No Acute Changes, Unchanged From Previous - Radiology Data Radiology results: Report reviewed (CXR: Neg) Disposition Disposition: Discharge Clinical Impression: Chest wall pain Disposition: Home, Self-Care Condition: (2) Stable Instructions: Chest Wall Pain (ED) Additional Instructions: Please continue your regular medicines for pain and see your family doctor for recheck next week. Return to the ER for any worsening symptoms. Forms: Patient Portal Access Time of Disposition: 06:26 Quality - Quality Measures Quality Measures: N/A - Blood Pressure Screening View Details: Yes Does Patient Have Any of the Following: No Blood Pressure Classification: Normal BP Reading Systolic Measurement: 114 Diastolic Measurement: 68 Screening for High Blood Pressure: < Normal BP, F/U Not Required > [G8783]
[2018-09-09 05:51] LABS: BILIRUBIN,TOTAL < 0.20 mg/dL (0.2-1.0); BLOOD UREA NITROGEN 8 mg/dL (6-20); CREATININE 0.5 mg/dL (0.5-0.9); EST GLOMERULAR FILTRATION RATE > 60 mL/min
[2018-09-09 05:54] LABS: GLUCOSE,RANDOM 99 mg/dL (74-109)
[2018-09-09 05:56] LABS: ALB/GLOB RATIO 1.6 (1.1-1.8); ALBUMIN 4.3 g/dL (4.0-5.0); ALKALINE PHOSPHATASE 64 U/L (35-104); ALT/SGPT 17 U/L (<33); AST/SGOT 12 U/L (10.0-35.0); CREATINE PHOSPHOKINASE 154 U/L (26-192)
[2018-09-09 05:58] LABS: CKMB 4.7 ng/mL (<3.77)
[2018-09-09 06:12] LABS: URINE APPEARANCE CLEAR; URINE BILIRUBIN NEGATIVE (NEGATIVE); URINE BLOOD NEGATIVE (NEGATIVE); URINE COLOR YELLOW; URINE GLUCOSE (UA) NEGATIVE (NEGATIVE); URINE KETONE TRACE (NEGATIVE); URINE LEUKOCYTE ESTERASE NEGATIVE (NEGATIVE); URINE NITRITE NEGATIVE (NEGATIVE); URINE PROTEIN NEGATIVE (NEGATIVE)
[2018-09-09 06:15] LABS: AMPHETAMINE SCREEN URINE NOT DETECTED; BARBITURATE SCREEN URINE NOT DETECTED; BENZODIAZEPINE SCREEN URINE DETECTED; COCAINE SCREEN URINE NOT DETECTED; METHADONE SCREEN URINE NOT DETECTED; OPIATE SCREEN URINE DETECTED; THC SCREEN URINE NOT DETECTED; TRICYCLIC ANTIDEPRESSANT SCRN NOT DETECTED
[2018-09-09 06:16] LABS: HCG,QUALITATIVE URINE NEGATIVE (NEGATIVE); METHAMPHETAMINE SCREEN NOT DETECTED; OXYCODONE SCREEN URINE NOT DETECTED; PHENCYCLIDINE SCREEN URINE NOT DETECTED; PROPOXYPHENE SCREEN URINE NOT DETECTED
--- NOTE | 2018-09-12 11:14 | RADIOLOGY REPORT ---
EXAM: CHEST, TWO VIEWS HISTORY: COUGH. TECHNIQUE: Two views of the chest were obtained. Comparison: 09/05/18. FINDINGS: The heart is not enlarged. The lungs and pleural spaces are clear. IMPRESSION: NO ACUTE CARDIOPULMONARY ABNORMALITY. JOB NUMBER: [id number] MTDD
== END 2018-09-09 06:32 | disposition home or self-care (01) ==
LOC: ER 05:01
DX: R07.89 Other chest pain (principal); M25.512 Pain in left shoulder; R05 Cough; I10 Essential (primary) hypertension; E11.9 Type 2 diabetes mellitus without complications; F17.210 Nicotine dependence, cigarettes, uncomplicated
CPT/HCPCS: 71046; 80053; 80305; 81003; 81025; 82550; 82553; 84484; 85025; 85379; 93005; 93010; 99284

== ENCOUNTER 2019-01-12 01:37 | Emergency (ER) | payer BC, MEDICARE ==
--- NOTE | 2019-01-12 01:54 | Emergency Department Record ---
History of Present Illness - General Chief Complaint: Shortness of breath Stated Complaint: TROUBLE BREATHING SINCE FEB Time Seen by Provider: 01/12/19 01:52 Source: Patient Mode of Arrival: Ambulatory Limitations: No limitations - History of Present Illness Initial Comments: 43 yo female presents to ED for evaluation of "difficulty taking a deep breaths" for the past 5 months. Patient reports that her symptoms began after returning from [place] in August, was seen for lower extremity edema following her return and DVT/PE was excluded at that time. Patient reports that she has undergone CXR and has been using a nebulizer at home with albuterol that has not significantly improved her symptoms. Patient denies chest pain or discomfort, denies previous history of DVT, and denies health problems other than chronic pain to her back. Onset/Timin -: Month(s) Severity: Mild Quality: Other Consistency: Intermittent Improves With: Nothing Worsens With: Nothing Associated Symptoms: Denies other symptoms Treatments Prior to Arrival: None - Related Data Home Oxygen Therapy: No Allergies Allergy/AdvReac Type Severity Reaction Status Date / Time ciprofloxacin [From Cipro] AdvReac Severe tendon Verified 09/05/18 12:39 rupture levofloxacin [From Levaquin] AdvReac Severe tendon Verified 09/05/18 12:39 rupture Review of Systems Constitutional: Denies: Chills, Fever, Malaise, Night sweats Eyes: Denies: Eye discharge, Eye pain ENT: Denies: Congestion, Ear pain, Epistaxis Respiratory: Reports: Other ("Unable to take deep breaths"). Denies: Cough, Dyspnea, Stridor, Wheezes Cardiovascular: Denies: Chest pain, Dyspnea on exertion, Edema, Palpitations, Syncope Endocrine: Denies: Fatigue Gastrointestinal: Denies: Abdominal pain, Nausea, Vomiting Genitourinary: Denies: Incontinence, Retention Musculoskeletal: Denies: Arthralgia, Back pain Skin: Denies: Bruising, Change in color Neurological: Denies: Abnormal gait, Confusion, Headache, Seizure Psychiatric: Denies: Anxiety Hematological/Lymphatic: Denies: Anemia, Blood Clots Past Medical History - SOCIAL HISTORY Smoking Status: Current every day smoker Drug Use: None - RESPIRATORY Hx Respiratory Disorders: Yes Hx Asthma: Yes (good control) - CARDIOVASCULAR Hx Cardio Disorders: Yes Hx Hypertension: Yes (on meds good control) Hx Irregular Heartbeat: Yes (occass skipped beats) Hx Palpitations: Yes Comment:: due to back issues - NEURO Hx Neuro Disorders: Yes Hx Dizziness: Yes (once in a while) Hx Headaches: Yes (occassionally) 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) - GI Hx GI Disorders: Yes Hx Nausea/Vomiting: Yes (with meds nausea from Percocet) - Hx Genitourinary Disorders: No Comment:: TL 1997.pt had ablation uterine 2009 periods very light - ENDOCRINE Hx Endocrine Disorders: Yes Hx Diabetes: Yes (dx'd 1 yr ago) - MUSCULOSKELETAL Hx Musculoskeletal Disorders: Yes Hx Arthritis: Yes Hx Back Injury: Yes (2 yrs ago) Hx Fibromyalgia: Yes - PSYCH Hx Psych Problems: Yes Hx Anxiety: Yes Hx Depression: Yes - HEMATOLOGY/ONCOLOGY Hx Hematology/Oncology Disorders: No Family Medical History Hx Diabetes: Grandparents Hx HTN: Father, Mother, Brother/Sister Physical Exam - General General Appearance: Alert, Oriented x3, Cooperative, No acute distress, Other (No respiratory distress on examination, vital are all within normal limits.) Limitations: No limitations - Head Head exam: Atraumatic, Normocephalic, Normal inspection Head exam detail: negative: Abrasion, Contusion, Renteria's sign, General tenderness, Hematoma, Laceration - Eye Eye exam: Normal appearance. negative: Conjunctival injection, Periorbital swelling, Periorbital tenderness, Scleral icterus - ENT Ear exam: negative: Auricular hematoma, Auricular trauma Nasal Exam: negative: Active bleeding, Discharge, Dried blood, Foreign body Mouth exam: negative: Drooling, Laceration, Muffled voice, Tongue elevation - Neck Neck exam: Normal inspection. negative: Meningismus, Tenderness - Respiratory Respiratory exam: Normal lung sounds bilaterally. negative: Rales, Respiratory distress, Rhonchi, Stridor - Cardiovascular Cardiovascular Exam: Regular rate, Normal rhythm, Normal heart sounds - GI/Abdominal GI/Abdominal exam: Soft. negative: Rebound, Rigid, Tenderness - Rectal Rectal exam: Deferred - exam: Deferred - Extremities Extremities exam: Normal inspection. negative: Pedal edema, Tenderness - Back Back exam: Denies: CVA tenderness (R), CVA tenderness (L) - Neurological Neurological exam: Alert, Normal gait, Oriented X3 - Psychiatric Psychiatric exam: Normal affect, Normal mood - Skin Skin exam: Normal color. negative: Abrasion Type of lesion: negative: abrasion Course Vital Signs 01/12/19 01:42 Temperature 98.4 F Pulse Rate [ 79 Pulse Ox Probe] Respiratory 20 Rate Blood Pressure 148/75 [Left Arm] Pulse Ox 98 - Reevaluation(s) Reevaluation #1: 01/12/19 02:03 PERC clinical decision rule was applied, and the patient does not have any of the following: -Age > 50 years -Pulse > 100 -Oxygen Saturation < 94% -History of Hemoptysis -Unilateral leg swelling -History or PE/DVT -Recent surgery or Trauma -Oral contraceptive/Hormone use Previous records were reviewed from 08/22 and 09/09, D-Dimer negative on both visits. Patient has undergone previous evaluations to exclude PE/DVT, CXRs that are negative, and treatment with bronchodilators that have not imporved her symptoms. Patient's vital signs are all within normal limits, and no respiratory distress or acute pulmonary abnormality is noted on examination. Will refer the patient for further evaluation with Pulmonology Tuesday as directed. 01/12/19 02:32 Disposition Disposition: Discharge Clinical Impression: Dyspnea Qualifiers: Dyspnea type: unspecified Qualified Code(s): R06.00 - Dyspnea, unspecified Disposition: Home, Self-Care Condition: (2) Stable Instructions: Dyspnea (ED) Additional Instructions: Return to ED if your symptoms worsen or if you have any concerns. Follow-up with Dr. Stevens in the [facility] Tuesday. Referrals: VANIA STEVENS M.D. [MEDICAL DOCTOR] - [facility] [Provider Group] Forms: Patient Portal Access Time of Disposition: 01:54 Quality - Quality Measures Quality Measures: N/A - Blood Pressure Screening Does Patient Have Any of the Following: No Blood Pressure Classification: Hypertensive Reading Systolic Measurement: 148 Diastolic Measurement: 75 Screening for High Blood Pressure: < First Hypertensive BP, F/U Documented > [G8950] First Hypertensive Follow-up Interventions: Referral to alternative/primary care provider.
== END 2019-01-12 02:02 | disposition home or self-care (01) ==
LOC: ER 01:37
DX: R06.00 Dyspnea, unspecified (principal); E11.9 Type 2 diabetes mellitus without complications; Z79.84 Long term (current) use of oral hypoglycemic drugs; I10 Essential (primary) hypertension; F17.210 Nicotine dependence, cigarettes, uncomplicated
CPT/HCPCS: 99282; 99283

== ENCOUNTER 2019-07-11 06:01 | Emergency (ER) | payer BC, MEDICARE ==
--- NOTE | 2019-07-11 06:17 | Emergency Department Record ---
History of Present Illness - General Stated complaint: JAYLYN Time Seen by Provider: 07/11/19 06:04 Source: Patient Mode of Arrival: Ambulatory Limitations: No limitations - History of Present Illness Initial comments: 44 yo female presents to ED for evaluation of difficulty swallowing for several days. Patient denies inability to swallow, but reports difficulty swallowing foods intermittently. 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 Patient denies cough, wheezing, fevers, or recent illness. MD complaint: Difficulty swallowing -: Days(s) Severity: Moderate Consistency: Intermittent Improves with: None Worsens with: None - Related Data Home Medications Medication Instructions Recorded Confirmed Last Taken Tiotropium [place] [Spiriva] 18 mcg IH 07/11/19 07/11/19 07/11/19 Allergies Allergy/AdvReac Type Severity Reaction Status Date / Time ciprofloxacin [From Cipro] AdvReac Severe tendon Verified 07/11/19 06:12 rupture levofloxacin [From Levaquin] AdvReac Severe tendon Verified 07/11/19 06:12 rupture Review of Systems Constitutional: Denies: Chills, Fever, Malaise, Night sweats Eyes: Denies: Eye discharge, Eye pain ENT: Reports: Throat pain. Denies: Ear pain, Epistaxis Respiratory: Denies: Cough, Dyspnea Cardiovascular: Denies: Chest pain, Dyspnea on exertion Endocrine: Denies: Fatigue, Heat or cold intolerance Gastrointestinal: Denies: Abdominal pain, Nausea, Vomiting Genitourinary: Denies: Incontinence, Retention Musculoskeletal: Denies: Arthralgia, Back pain Skin: Denies: Bruising, Change in color Neurological: Denies: Abnormal gait, Confusion, Headache, Seizure Psychiatric: Denies: Anxiety Hematological/Lymphatic: Denies: Anemia, Blood Clots Past Medical History - SOCIAL HISTORY Smoking Status: Current every day smoker Drug Use: None - RESPIRATORY Hx Respiratory Disorders: Yes Hx Asthma: Yes (good control) - CARDIOVASCULAR Hx Cardio Disorders: Yes Hx Hypertension: Yes (on meds good control) Hx Irregular Heartbeat: Yes (occass skipped beats) Hx Palpitations: Yes Comment:: due to back issues - NEURO Hx Neuro Disorders: Yes Hx Dizziness: Yes (once in a while) Hx Headaches: Yes (occassionally) 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) - GI Hx GI Disorders: Yes Hx Nausea/Vomiting: Yes (with meds nausea from Percocet) - Hx Genitourinary Disorders: No Comment:: TL 1997.pt had ablation uterine 2009 periods very light - ENDOCRINE Hx Endocrine Disorders: Yes Hx Diabetes: Yes (dx'd 1 yr ago) - MUSCULOSKELETAL Hx Musculoskeletal Disorders: Yes Hx Arthritis: Yes Hx Back Injury: Yes (2 yrs ago) Hx Fibromyalgia: Yes - PSYCH Hx Psych Problems: Yes Hx Anxiety: Yes Hx Depression: Yes - HEMATOLOGY/ONCOLOGY Hx Hematology/Oncology Disorders: No Family Medical History Hx Diabetes: Grandparents Hx HTN: Father, Mother, Brother/Sister Physical Exam - General General Appearance: Alert, Oriented x3, Cooperative, No acute distress, Other (Patient is swallowing water without difficulty) Limitations: No limitations - Head Head exam: Atraumatic, Normocephalic, Normal inspection Head exam detail: negative: Abrasion, Contusion, Renteria's sign, General tenderness, Hematoma, Laceration - Eye Eye exam: Normal appearance. negative: Conjunctival injection, Periorbital swelling, Periorbital tenderness, Scleral icterus - ENT Ear exam: negative: Auricular hematoma, Auricular trauma Nasal Exam: negative: Active bleeding, Discharge, Dried blood, Foreign body Mouth exam: negative: Drooling, Laceration, Muffled voice, Tongue elevation - Neck Neck exam: Normal inspection. negative: Meningismus, Tenderness - Respiratory Respiratory exam: Normal lung sounds bilaterally. negative: Rales, Respiratory distress, Rhonchi, Stridor - Cardiovascular Cardiovascular Exam: Regular rate, Normal rhythm, Normal heart sounds - GI/Abdominal GI/Abdominal exam: Soft. negative: Rebound, Rigid, Tenderness - Rectal Rectal exam: Deferred - exam: Deferred - Extremities Extremities exam: Normal inspection. negative: Pedal edema, Tenderness - Back Back exam: Denies: CVA tenderness (R), CVA tenderness (L) - Neurological Neurological exam: Alert, Normal gait, Oriented X3 - Psychiatric Psychiatric exam: Normal affect, Normal mood - Skin Skin exam: Normal color. negative: Abrasion Type of lesion: negative: abrasion Course - Reevaluation(s) Reevaluation #1: 07/11/19 06:16 Patient was seen and examined Patient's lung sounds are clear on examination Patient is able to tolerate liquids, no evidence for impacted food bolus is present on examination. Patient was instructed to follow-up with her PCP in 3-5 days for swallow study to exclude esophageal stricture or narrowing. Disposition Disposition: Discharge Clinical Impression: Dysphagia Qualifiers: Dysphagia type: unspecified Qualified Code(s): R13.10 - Dysphagia, unspecified Disposition: Home, Self-Care Condition: (2) Stable Instructions: Dysphagia (ED) Additional Instructions: Return to ED if your symptoms worsen or if you have any concerns. Follow-up with your family doctor in 3-5 days as directed for esophageal study. Forms: Patient Portal Access Time of Disposition: 06:18 Quality - Quality Measures Quality Measures: N/A - Blood Pressure Screening Does Patient Have Any of the Following: No Blood Pressure Classification: Pre-Hypertensive BP Reading Systolic Measurement: 124 Diastolic Measurement: 87 Screening for High Blood Pressure: < Pre-Hypertensive BP, F/U Documented > [G8950] Pre-Hypertensive Follow-up Interventions: Referral to alternative/primary care provider.
== END 2019-07-11 06:31 | disposition home or self-care (01) ==
LOC: ER 06:01
DX: R13.10 Dysphagia, unspecified (principal); R06.00 Dyspnea, unspecified; F17.210 Nicotine dependence, cigarettes, uncomplicated; I10 Essential (primary) hypertension; E11.9 Type 2 diabetes mellitus without complications; Z79.84 Long term (current) use of oral hypoglycemic drugs
CPT/HCPCS: 99282